=== PATIENT | female | born 1995 | race Caucasian/White ===

== ENCOUNTER 2022-08-19 12:46 | Emergency (ER) | payer BC ==
[~2022-08-19] VITALS: Ht 177.8 cm; Wt 68.0 kg
--- NOTE | 2022-08-19 12:55 | NUR ---
RECEIVED PT 27 YRS FEMALE WALING IN FROM HOME C/O N/V SINCES LAST NIGHT after dringing aloohol last night
--- NOTE | 2022-08-19 13:10 | NUR ---
SEEN BY DR. KARYN REAGAN AND SENT TO LAB [facility]A SENT FORM MARYANN
[2022-08-19] MEDS ORDERED: ONDANSETRON HCL/PF 4 MG/2 ML VIAL ONE (13:12)
--- NOTE | 2022-08-19 13:15 | NUR ---
INSERTED ANGOCATHETER G 18 ON RT AC BLOOD DROW AND SENT TO LAB
[2022-08-19] MEDS ORDERED: ONDANSETRON HCL/PF 4 MG/2 ML VIAL IVP ONE (13:30)
[2022-08-19] MEDS ORDERED: IV NS 0.9% 1,000 ML BAG IV ONE (13:30)
[2022-08-19 13:34] LABS: BASOPHILS # (AUTO) 0.1 K/uL (0.0-0.2); BASOPHILS % (AUTO) 0.6 % (0.0-2.0); EOSINOPHILS % (AUTO) 0.4 % (0.0-6.0); HEMATOCRIT 42 % (33-45); HEMOGLOBIN 14.5 g/dL (11.5-14.8); LYMPHOCYTES # (AUTO) 1.6 K/uL (0.8-4.8); LYMPHOCYTES % (AUTO) 14.3 % (20.0-44.0); MEAN CORPUSCULAR HGB CONC 34 g/dl (31.0-36.0); MEAN CORPUSCULAR VOLUME 95 fL (82-100); MONOCYTES # (AUTO) 0.8 K/uL (0.1-1.30); MONOCYTES % (AUTO) 6.8 % (2.0-12.0); NEUTROPHILS # (AUTO) 8.8 K/uL (1.8-8.9); NEUTROPHILS % (AUTO) 77.9 % (43.0-81.0); PLATELET COUNT (AUTO) 319 K/uL (150-450); RED BLOOD CELL COUNT(AUTO) 4.44 MIL/uL (4.0-5.2); WHITE BLOOD COUNT (AUTO) 11.3 K/uL (4.3-11.0)
[2022-08-19 13:43] LABS: CREATININE 0.7 mg/dL (0.6-1.3); POTASSIUM 3.8 mmol/L (3.5-5.1)
[2022-08-19 13:48] LABS: ALBUMIN 4.3 g/dL (3.4-5.0); BILIRUBIN,DIRECT 0.2 mg/dL (0.0-0.2); BILIRUBIN,TOTAL 0.6 mg/dL (0.2-1.0); TOTAL PROTEIN, SERUM 7.9 g/dL (6.4-8.2)
[2022-08-19] MEDS ORDERED: ONDA4TAB5 PO (13:50)
[2022-08-19] MEDS ORDERED: LORA-259 PO (13:50)
--- NOTE | 2022-08-19 14:56 | NUR ---
RESTING AND ASLEEPY WATING FOR UA RESULT
[2022-08-19 15:21] LABS: BILIRUBIN,URINE NEGATIVE (NEGATIVE); COLOR,URINE YELLOW (YELLOW); LEUKOCYTE ESTERASE ,URINE NEGATIVE (NEGATIVE); NITRITE, URINE NEGATIVE (NEGATIVE); PH,URINE 8.5 (5.0-8.0); PROTEIN,URINE 1+ mg/dl (NEGATIVE); UGLUCOSE NEGATIVE (NEGATIVE); UROBILINOGEN,URINE 0.2 EU/dL (0.2)
--- NOTE | 2022-08-19 15:30 | NUR ---
WATING FOR UA RESULT
[2022-08-19 15:42] LABS: BACTERIA,URINE None seen /HPF (None Seen); RBC,URINE 0-2 /HPF (0-2); SQUAMOUS EPITHELIAL CELL,UR 0-2 /HPF (None Seen); URINE AMORPHOUS PHOSPHATES Moderate /HPF (None Seen); WBC,URINE 0-2 /HPF (0-3)
--- NOTE | 2022-08-19 15:45 | NUR ---
IV removed. Catheter intact and site benign. Pressure and 4x4 applied to site. No bleeding noted.
--- NOTE | 2022-08-19 15:48 | NUR ---
Patient discharged to home in stable condition. Written and verbal after care instructions given. Patient verbalizes understanding of instruction.
[2022-08-19 16:25] VITALS: BP 126/77
== END 2022-08-19 16:26 | disposition home or self-care (01) ==
LOC: ER 13:05 → EDBD 13:05 → ER 16:26
DX: R06.02 Shortness of breath (principal)
CPT/HCPCS: 99285; 96374; 96361; 85025; 80048; 80076; 84703; 81001; 36415; J2405; J7030